=== PATIENT | female | born 1970 | race Caucasian/White ===

== ENCOUNTER 2020-02-22 09:33 | Emergency (ER) | payer OTHER ==
[~2020-02-22] VITALS: Ht 175.3 cm; Wt 94.3 kg
== END 2020-02-22 14:16 | disposition home or self-care (01) ==
LOC: ER 09:33
DX: J03.80 Acute tonsillitis due to other specified organisms (principal); B34.9 Viral infection, unspecified

== ENCOUNTER 2021-11-12 01:02 | Emergency (ER) | payer OTHER ==
[~2021-11-12] VITALS: Ht 175.3 cm; Wt 100.2 kg
[2021-11-12] MEDS ORDERED: SYNTHROID50 MCG PO (01:27)
[2021-11-12] MEDS ORDERED: PHENAGIL TABLE1 EACH PO (04:38)
== END 2021-11-12 04:42 ==
LOC: ER 01:02
DX: B34.9 Viral infection, unspecified (principal); E03.9 Hypothyroidism, unspecified; Z20.822 Contact with and (suspected) exposure to COVID-19

== ENCOUNTER 2023-05-10 09:40 | Inpatient (IN) | payer OTHER ==
[~2023-05-10] VITALS: Ht 175.3 cm; Wt 95.3 kg
[~2023-05-10 09:40] MED LIST: PHENAGIL TABLE1 EACH PO; SYNTHROID50 MCG PO
[2023-05-10] MEDS ORDERED: SYNTHROID50 MCG (10:09)
[2023-05-10] MEDS ORDERED: GLUMETZA500 MG (10:10)
[2023-05-10] MEDS ORDERED: PEPCID AC20 MG (10:10)
--- NOTE | 2023-05-10 10:25 | NUR ---
PACIENTE ALERTA Y ORIENTADA X3. REFIERE VENIR POR DOLOR EN LA CINDY Y EN AREA DE LOS OJOS, MAREOS, LENGUA PESADA Y DIFICULTAD PARA ESCRIBIR. REFIERE ESTAR CON EL DOLOR DE CINDY HACE MAS DE [place] SEMANA Y CON LOS MAREOS DESDE EL LUNES Y LOS OTROS SINTOMAS. PACIENTE REFIRIO ADELE PRESENTO UN VOMITO CASH HOY NO. SE REALIZA EKG Y SE PRESENTA A DR. BHARDWAJ.
--- NOTE | 2023-05-10 11:05 | NUR ---
PTE EVALIUADA POR DR [facility] [place] [facility]. MS WELCH EDUCA A PTE SOBRE EL MISMO Y REFIER ENTENDER. MS WELCH EJECUTA ORDENES BAJO MEDIDAS ACEPTICAS. PTE PEND A RESULTADOS DE LABS.
== END 2023-05-15 16:28 | disposition home or self-care (01) | DRG 66 ==
LOC: ER 09:40 → ICU-2 17:50 → ICU 17:50 → MEDI 05-12 21:10
PROVIDERS: ADMIT Specialist; ATTEND Specialist
PROC: BW29ZZZ Computerized Tomography (CT Scan) of Head and Neck (ICD-10-PCS; principal; 2023-05-10)
PROC: BW38ZZZ Magnetic Resonance Imaging (MRI) of Head (ICD-10-PCS; 2023-05-10)
PROC: B325ZZZ Computerized Tomography (CT Scan) of Bilateral Common Carotid Arteries (ICD-10-PCS; 2023-05-10)
PROC: B24BYZZ Ultrasonography of Heart with Aorta using Other Contrast (ICD-10-PCS; 2023-05-11)
PROC: BW28ZZZ Computerized Tomography (CT Scan) of Head (ICD-10-PCS; 2023-05-12)
DX: I63.9 Cerebral infarction, unspecified (principal); I69.322 Dysarthria following cerebral infarction; I10 Essential (primary) hypertension; E66.01 Morbid (severe) obesity due to excess calories; Z68.31 Body mass index [BMI] 31.0-31.9, adult
CPT/HCPCS: 70544

== ENCOUNTER 2023-05-17 12:18 | Emergency (ER) | payer OTHER ==
[~2023-05-17] VITALS: Ht 175.3 cm; Wt 92.5 kg
[~2023-05-17 12:18] MED LIST changes: +GLUMETZA500 MG; +PEPCID AC20 MG; +SYNTHROID50 MCG
[2023-05-17] MEDS ORDERED: HYDRODIURIL12.5 MG PO (12:54)
[2023-05-17] MEDS ORDERED: LIPITOR40 M1 PO (12:54)
[2023-05-17] MEDS ORDERED: PLAVIX75 MG (12:54)
[2023-05-17] MEDS ORDERED: ZESTRIL2.5 MG PO (12:54)
== END 2023-05-17 13:40 | disposition home or self-care (01) ==
LOC: ER 12:18
DX: R00.2 Palpitations (principal); I10 Essential (primary) hypertension; Z86.73 Personal history of transient ischemic attack (TIA), and cerebral infarction without residual deficits

== ENCOUNTER 2023-07-17 07:34 | Outpatient (CLI) | payer OTHER ==
[~2023-07-17 07:34] MED LIST changes: +HYDRODIURIL12.5 MG PO; +LIPITOR40 M1 PO; +PLAVIX75 MG; +ZESTRIL2.5 MG PO
== END 2023-07-17 07:51 | disposition home or self-care (01) ==
LOC: TOM 07:34 → MRI 07:34
PROVIDERS: ATTEND Psychiatry & Neurology Neurology
DX: I63.341 Cerebral infarction due to thrombosis of right cerebellar artery (principal)

== ENCOUNTER → 2024-08-12 | Emergency (ER) | payer OTHER ==
[~2024-08-12] VITALS: Ht 175.3 cm; Wt 99.8 kg
[~2024-08-12] MED LIST changes: +COZAAR25 MG PO; +NORVASC2.5 M1 PO
== END | disposition left against medical advice (07) ==
LOC: ER 14:59
DX: Z53.21 Procedure and treatment not carried out due to patient leaving prior to being seen by health care provider (principal)

== ENCOUNTER 2024-08-19 12:43 | Outpatient (CLI) | payer OTHER | END 2024-08-19 12:45 | disposition home or self-care (01) | LOC: TOM 12:43 | PROVIDERS: ATTEND Internal Medicine | DX: G45.9 Transient cerebral ischemic attack, unspecified (principal) ==

== ENCOUNTER 2024-10-13 09:27 | Emergency (ER) | payer OTHER ==
[~2024-10-13] VITALS: Ht 175.3 cm; Wt 99.3 kg
[2024-10-13 09:31] VITALS: BP 166/91; O2SAT 100
[2024-10-13] MEDS ORDERED: ORPHENADRINE CITRATE 30 MG/ML AMPUL IM ONE (10:30)
[2024-10-13] MEDS ORDERED: TRIAMCINOLONE ACETONIDE 40 MG/ML VIAL IM ONE (10:30)
[2024-10-13] MEDS ORDERED: TRAMADOL HCL 50 MG TABLET PO ONE (10:30)
== END 2024-10-13 12:41 | disposition home or self-care (01) ==
LOC: ER 09:29
DX: M54.50 Low back pain, unspecified (principal); I10 Essential (primary) hypertension; Z86.73 Personal history of transient ischemic attack (TIA), and cerebral infarction without residual deficits

== ENCOUNTER 2025-09-23 06:00 | Day surgery (SDC) | payer OTHER ==
[2025-09-19 08:27] LABS: URINE APPEARANCE Clear; URINE BILIRRUBIN Negative (NEGATIVE); URINE BLOOD Small; URINE COLOR Yellow; URINE GLUCOSE Negative (NEGATIVE); URINE KETONE Negative (NEGATIVE); URINE LEUKOCYTE Moderate; URINE NITRATE Negative; URINE PROTEIN Negative (NEGATIVE); URINE UROBILINOGEN 0.2 E.U./dl
[2025-09-19 08:29] LABS: URINE BACTERIA 538.7 uL (0.0-1933); URINE EPITHELIAL CELLS 30.5 uL (0.0-38.8); URINE RBC 9.0 uL (0.0-20.8); URINE WBC 73.9 uL (0.0-23.2)
[2025-09-19 08:33] VITALS: BP 132/89
[2025-09-19 08:33] LABS: BASO % 0.7 % (0.1-1.2); EOS # 0.31 (0.04-0.54); EOS % 3.6 % (0.7-7.0); LYMPH # 2.61 (1.18-3.74); LYMPH % 30.2 % (19.3-53.1); MEAN PLATELET VOLUME 9.90 fl (9.4-12.4); MONO # 0.74 (0.24-0.82); MONO % 8.6 % (4.7-12.5); NEUT # 4.90 (1.56-6.13); NEUT % 56.7 % (34.0-71.1); RED CELL DISTRIBUTION WIDTH 14.3 % (11.6-14.4)
[2025-09-19 08:38] LABS: URINE CAST 0.00 uL (0.0-1.40)
[2025-09-19 09:01] LABS: INR 1.02
[2025-09-19 09:41] LABS: ALT/SGPT 41.0 U/L (12-78); AST/SGOT 19.0 U/L (15-37); BILIRUBIN TOTAL 0.45 mg/dL (0.3-1.2); BUN CREA RATIO 21.0 (7.0-25.0); CREATININE SERUM 0.73 mg/dL (0.55-1.02); GFR 83.39; GLOBULINA 3.7 G/DL (2.4-3.5); GLUCOSE FASTING 81.0 mg/dL (65-100); OSMOLALITY SERUM 281.0 MOSM/KG (275-295); TSH 2.01 uIU/mL (0.358-3.74)
[~2025-09-23] VITALS: Ht 175.3 cm; Wt 95.3 kg
[~2025-09-23 06:00] MED LIST changes: +DEXILANT30 MG
[2025-09-23] MEDS ORDERED: CEFAZOLIN SODIUM 1,000 MG VIAL ONE (07:05)
[2025-09-23] MEDS ORDERED: BUPIVACAINE HCL 30 ML VIAL IJ ONE (08:30)
[2025-09-23] MEDS ORDERED: CEFAZOLIN SODIUM 1,000 MG VIAL IV ONE (08:30)
[2025-09-23] MEDS ORDERED: SUGAMMADEX SODIUM 200 MG/2 ML VIAL IV ONE (08:55)
[2025-09-23] MEDS ORDERED: CEFAZOLIN SODIUM 1,000 MG VIAL IV SCH (09:45)
[2025-09-23] MEDS ORDERED: ONDANSETRON HCL 2 MG/ML VIAL ONE (10:18)
[2025-09-23] MEDS ORDERED: FAMOTIDINE/PF 20 MG/2 ML VIAL ONE (11:18)
[2025-09-23] MEDS ORDERED: FAMOTIDINE/PF 20 MG/2 ML VIAL IV PUSH ONE (11:30)
== END 2025-09-23 12:45 | disposition home or self-care (01) ==
LOC: CIR.AMB 06:00
PROVIDERS: ATTEND Specialist
DX: K80.10 Calculus of gallbladder with chronic cholecystitis without obstruction (principal)